=== PATIENT | female | born 1985 | race Caucasian/White ===

== ENCOUNTER 2018-02-25 08:05 | Outpatient (CLI) | payer OTHER ==
--- NOTE | 2018-02-25 09:56 | MRI ---
MRI OF THE RIGHT KNEE WITHOUT CONTRAST: INDICATION: A 32-year-old female with right knee pain for 1 month without history of injury or surgery. TECHNIQUE: Routine noncontrast MR images were obtained of the right knee. No comparisons are available. Mild mo tion artifact slightly limits image detail. FINDINGS: There is mild chondrosis involving the medial patellar facet and median patellar ridge without eviden ce of a full-thickness defect. No definite full-thickness articular cartilage defect is seen involvi ng the femorotibial compartments. The medial meniscus and lateral meniscus appear intact. The ACL, PCL, MCL, and LCLC are intact. The extensor mechanism is intact. The IT band and popliteus appear within normal limits. No Davis's cyst is demonstrated. IMPRESSION: 1. Mild chondrosis involving the median patellar ridge and medial patellar facet without evidence of a full-thickness articular cartilage defect. 2. The anterior cruciate ligament, posterior cruciate ligament, medial collateral ligament, and late ral collateral ligament complex intact. 3. Medial and lateral menisci appear intact. POS: [facility]
== END 2018-02-25 08:06 | disposition home or self-care (01) ==
LOC: MRI 08:05
PROVIDERS: ATTEND Orthopaedic Surgery
DX: M25.561 Pain in right knee (principal); M22.2X1 Patellofemoral disorders, right knee
CPT/HCPCS: 36415; 83520; 84550; 85652; 86038; 86140; 86200; 86225